=== PATIENT | male | born 2000 | race African-American/Black ===

== ENCOUNTER → 2021-07-08 11:32 | Outpatient (CLI) | payer SELFPAY | PROVIDERS: Referring Provider Orthopaedic Surgery; Visit Provider Orthopaedic Surgery | DX: S83.511A Sprain of anterior cruciate ligament of right knee, initial encounter (principal); Z53.8 Procedure and treatment not carried out for other reasons ==

== ENCOUNTER → 2021-07-17 14:07 | Outpatient (CLI) | payer OTHER, MEDICAID, SELFPAY ==
--- NOTE | 2021-07-17 14:36 | DI.MRI.S_ITS ---
PROCEDURE: MR KNEE RT WO CON INDICATIONS: Sprain of anterior cruciate ligament of right knee TECHNIQUE: Noncontrast sagittal PD fast spin echo and T2 fast spin echo with fat saturation, sagittal 3-D FLASH with fat saturation; coronal T1 spin echo and PD fast spin echo with fat saturation, and axial PD fast spin echo with fat saturation through the knee. COMPARISON: [facility] [place], CR, XR KNEE ARTHRITIC SERIES RT, 09/18/2020, 10:57. FINDINGS: Image quality: Excellent. Menisci: There is a tear of the posterior horn of the medial meniscus which extends to the inferior articular surface and the free edge. The lateral meniscus demonstrate normal morphology and internal signal. The meniscal root ligaments appear intact. Cruciate ligaments: Chronic appearing anterior cruciate ligament tear. Torn anterior cruciate ligament is retracted. The posterior cruciate ligament appears intact. Medial structures: The medial collateral ligament appears intact. The posterior oblique ligament, semimembranosus tendon insertions, oblique popliteal ligament, and meniscocapsular junction appear intact. Visualized portions of the pes anserinus tendons appear normal. No abnormal bursal fluid. Lateral structures: The lateral collateral ligament, long and short heads of the biceps femoris tendon appear intact. The popliteus tendon appears normal; the popliteofibular ligament appears intact. The posterosuperior and anteroinferior popliteomeniscal fascicles appear intact. The arcuate and fabellofibular ligaments appear intact, on either side of the lateral inferior geniculate artery. Iliotibial band appears normal. Anterior structures: The quadriceps and patellar tendons appear intact. Patellar alignment is normal. No femoral trochlear dysplasia or ventral trochlear prominence. No edema in the infrapatellar fat pad. Bones and cartilage: No bone marrow contusions or fractures. The cartilage of the lateral femorotibial compartment, as well as the patellofemoral compartment, appears normal in thickness. There is thinning and irregularity of the articular cartilage in the medial compartment with adjacent reactive bone marrow edema. Joint space: There is a small joint effusion. Small popliteal cyst noted. Normal appearing synovial plicae are incidentally noted. IMPRESSION: 1. 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 2. Tear of the posterior horn of the medial meniscus. 3. Thinning and irregularity of the articular cartilage of the medial compartment. 4. Small joint effusion. 5. Small popliteal cyst. Dictated by: Jazmín Hopkins MD, PhD on 07/17/2021 at 15:02 Approved by: Jazmín Hopkins MD, PhD on 07/17/2021 at 17:12
== END ==
PROVIDERS: Referring Provider Orthopaedic Surgery; Visit Provider Orthopaedic Surgery
DX: S83.511A Sprain of anterior cruciate ligament of right knee, initial encounter (principal); S83.241A Other tear of medial meniscus, current injury, right knee, initial encounter; M25.461 Effusion, right knee; M71.21 Synovial cyst of popliteal space [Baker], right knee
CPT/HCPCS: 73721

== ENCOUNTER → 2021-08-30 09:40 | Outpatient (CLI) | payer OTHER, MEDICAID, SELFPAY ==
[2021-08-30 12:03] LABS: COVID19 -Nasal RAPID Negative (Negative)
== END ==
PROVIDERS: Visit Provider Nurse Practitioner Family
DX: Z20.822 Contact with and (suspected) exposure to COVID-19 (principal)
CPT/HCPCS: 87635; C9803

== ENCOUNTER 2021-09-02 13:00 | Day surgery (SDC) | payer OTHER, MEDICAID, SELFPAY ==
[2021-08-21 08:50] VITALS: BMI 21.1
[2021-09-02] VITALS (8 sets, daily range): BP systolic 103–131; BP diastolic 52–89; PULSE 65–82; RESP 12–22; TEMP 36.6–36.8; O2SAT 97–100; BMI 21.1
[2021-09-02] MEDS: PREGABALIN 75 MG CAPSULE PO (13:51)
[2021-09-02] MEDS: CELECOXIB 200 MG CAPSULE PO (13:51)
[2021-09-02] MEDS: LACTATED RINGERS 1,000 ML 84 ML IV (13:51)
--- NOTE | 2021-09-02 14:10 | PM.PREOP ---
Pre-operative Note COVID-19 COVID-19 status: Negative Result date/Date tested (Pos, Neg/Pending): 08/30/21 Interval Note History & Physical reviewed/Exam performed by Physician: Yes Changes to H&P: No
--- NOTE | 2021-09-02 14:57 | SUR.PREOP ---
Block start time [1435] . Monitoring initiated and maintained throughout procedure. Oxygen and medications given per anesthesiologist instructions. Patient remained stable throughout procedure, no adverse reactions noted. Block end time [1448].
[2021-09-02] MEDS: CEFAZOLIN 2 GM/20 ML SYRINGE IV (15:00)
--- NOTE | 2021-09-02 15:25 | PM.PROC.1 ---
Procedures Date/Time Date of procedure: 09/02/21 Time of procedure: 13:40 General Procedure description: Ultrasound guided femoral nerve block for post op pain control after right ACL reconstruction by Dr. Walters. Risk and benefits of procedure discussed with patient. ASA monitoring applied to patient. O2 given via nasal cannula. 2 mg Versed and 50 mcg fentanyl given for procedural sedation. Inguinal skin site was prepped with chlorhexidine and allowed to fully dry. Sterile gloves, mask, hat and probe cover were used to maintain sterility. 2% lidocaine and 30ga needle was used to make a small skin wheal at needle insertion site. Under ultrasound guidance, a 21ga 50mm Pajunk needle was directed into the adductor canal near femoral artery at the inguinal crease. Quadricepts stimulated with 0.2mA electrical current. After negative aspiration, 20 mL 0.5% ropivacaine and 10mg dexamethasone were injected around femoral nerve. Patient tolerated procedure well.
--- NOTE | 2021-09-02 15:29 | SUR.OPER ---
Supine on padded OR bed, head on pillow, arms secured on padded arm boards at <90 degrees abduction, legs uncrossed, safety belt at torso, Right leg in control of the Surgeon. Surgeon requested no tape to Left lower leg due to positioning of bed. Legs of bed bent downwards. Padded Lateral thigh brace to right thigh/tourniquet area.
[2021-09-02] MEDS: BUPIVACAINE 0.5% (PF) VIAL 30 ML INJ (15:36)
--- NOTE | 2021-09-02 16:33 | P.OP_ITS ---
Operative Date/Time/Diagnoses Date of procedure: 09/02/21 Time of procedure: 16:34 Pre-op diagnosis: 1. ACL rupture, right knee 2. Medial meniscus tear, right knee Post-op diagnosis: same Procedure & Clinicians Procedure: 1. Arthroscopic ACL reconstruction with hamstring autograft, right knee 2. Arthroscopic partial medial meniscectomy, right knee Same procedure as scheduled: Yes Indications: The patient is a 20-year-old young man who has had an injury to his knee a number of months ago. He has continued to have symptoms of instability and pain and after discussion of the risks benefits and alternatives he has requested that we proceed with surgery. Risks discussed included but were not limited to: Failure to return to same level of sporting, failure to provide stability, failure to provide pain relief, stiffness, infection, nerve damage, deep venous thrombosis, pulmonary embolism, stroke, myocardial infarction, permanent paralysis, aspiration pneumonia and . Surgeon: Narciso Walters Information Systems Coordinator: Andrei Perez Click Yes if Unassisted: No Anesthesia Type: General, Peripheral nerve block and Local Operative Notes Findings: 1. Normal suprapatellar pouch 2. Normal patellofemoral joint 3. Medial and lateral gutters normal except for a displaced fragment of medial meniscus flipped into the medial gutter 4. Medial compartment notable for complex posterior horn, irreparable medial meniscus tear and grade 2 chondromalacia in an area approximately 10 x 15 mm in the weight-bearing surface of the medial femoral condyle. 5. Intercondylar notch notable for a complete rupture of the ACL. PCL appeared to be intact. 6. Lateral compartment notable for intact meniscus and cartilage. 7. Posterolateral compartment normal 8. Posterior medial compartment notable for complex posterior horn medial meniscus tear. Exam under anesthesia notable for full range of motion, no effusion, collateral ligaments appeared to be intact. PCL appeared to be intact. ACL had a grade 3 Telly's and a grade 3 pivot shift with temporary locking. Closure Type: primary Specimen(s): none sent Prosthetic devices, grafts, tissues, transplants, or devices: Implants used in this procedure included an Arthrex tight rope implant for the femur and an Intrafix tibial sheath and screw with a 30 mm sheath and an 8-10 X 30 mm screw. Applied: implant(s) Estimated Blood Loss (mL): 10 Blood products transfused: none Tourniquet time (min): 47 Procedure in detail: The patient was seen in the preoperative area where he identified his right knee as the operative site and this was marked with my initials. He underwent a femoral nerve block and was taken to the operating room and placed on the operating room table in the supine position. He underwent a general anesthetic. He received preoperative antibiotics. His knee was examined under anesthesia with the result given above. A realtime court reporter-out was performed. A tourniquet was placed about the proximal right thigh. The right leg was prepared from the toes to the tourniquet with ChloraPrep in the usual fashion draped through sterile drapes. A superomedial portal was created for the pump cannula in the knee expanded with arthroscopic fluid. A lateral portal was created for the arthroscope and diagnostic arthroscopy ensued with result given above. During diagnostic arthroscopy a medial portal was created for the probe and other tools. Initially the shaver was used to perform a partial medial meniscectomy. All arthroscopic equipment was removed except for the outflow cannula. The leg was elevated and exsanguinated with an Esmarch bandage the tourniquet inflated to 250 mmHg. An approximately cm and half incision was created over the pes anserinus tendons. The gracilis and semitendinosus tendons were harvested in the usual fashion with a closed ended tendon harvester and taken to the back table for preparation into a graft by my infertility medical assistant. While the graft was being prepared, I placed the arthroscope back in the knee. The ACL remnant was debrided with shaver. The arthroscope was moved to the medial portal and the Arthrex flip cutter guide was brought in through the lateral portal and used to place a flip cutter device in the center of the ACL footprint. A 9 mm diameter by 25 mm deep socket was created in the femur. A passing suture was placed into the joint and brought out through the lateral portal. The arthroscope was then positioned in the lateral portal and the tibial guide placed through the medial portal and the tibial tunnel created which was also 9 mm in diameter. This was created over guidewire in the center of the ACL footprint on the tibia. The knee was then drained of fluid, the passing suture was brought out through the tibial tunnel and used to deliver the graft into the femoral socket. After deploying the ?tight rope? I put tension on the graft to ensure that it was fixed on the femoral cortex. The tight rope device was then used to advance the graft into the tunnel. The tensioning guide was then placed on the tibial ends of the graft and the knee was placed through 20 cycles of flexion and extension with 20 lb of tension on the grafts. This was then held 15 lb of tension while a sheath and the interference screw was placed in the tibial tunnel for tibial fixation. The knee was then examined under anesthesia with findings of elimination of the Telly's to grade 0. The excess graft exiting the tibial tunnel was amputated. The sutures of the tight rope were tied to each other using a knot pusher to prevent loosening. The sutures were cut beneath the level of the skin. The graft harvest wound was closed with 3-0 Vicryl in the subcutaneous layer and then all wounds were closed with 4-0 subcuticular Monocryl. Steri-Strips were applied. The knee was injected with 20 mL 0.5% Marcaine for postoperative pain control. The tourniquet was deflated during closure for a total tourniquet time of 47 minutes. Dressings of sterile 4x4s, sterile cast padding and an Pelon wrap were applied. The patient was then transferred to the recovery room in good condition having tolerated the proce dure well. Complications: none Post-operative Condition: stable Disposition: PACU Plan for aftercare: Patient will be discharged home today. He will use crutches for the 1st 24 hours because of his femoral nerve block. He will then use crutches for com fort. He will be advanced on a standard ACL protocol. He will be following up in my office in 2 weeks. Prescriptions for oxycodone and hydroxyzine have been called in to his pharmacy for postoperative pain relief.
[2021-09-02] MEDS: OXYCODONE IR 5 MG TABLET PO (17:28)
[2021-09-02] MEDS: hydrOXYzine pamoate 25 MG CAPSULE PO (17:29)
== END 2021-09-02 17:45 | disposition home or self-care (01) ==
PROVIDERS: PCP Pediatrics; Referring Provider Pediatrics; Visit Provider Orthopaedic Surgery
PROC: (CPT 29888; principal; 2021-09-02 15:00)
DX: S83.511A Sprain of anterior cruciate ligament of right knee, initial encounter (principal); S83.241A Other tear of medial meniscus, current injury, right knee, initial encounter; X58.XXXA Exposure to other specified factors, initial encounter; M94.261 Chondromalacia, right knee
CPT/HCPCS: 29888; 29881; 64450; J0690; J1100; J2250; J2405; J2704; J3010

== ENCOUNTER → 2022-09-15 12:29 | Outpatient (CLI) | payer OTHER, MEDICAID, SELFPAY ==
[2022-09-15 13:47] LABS: COVID19 -Nasal RAPID Negative (Negative)
== END ==
PROVIDERS: PCP Pediatrics; Referring Provider Orthopaedic Surgery; Visit Provider Orthopaedic Surgery
DX: Z20.822 Contact with and (suspected) exposure to COVID-19 (principal)
CPT/HCPCS: 87635; C9803

== ENCOUNTER 2022-09-17 06:22 | Day surgery (SDC) | payer OTHER, MEDICAID, SELFPAY ==
[2022-09-16 08:49] VITALS: BMI 20.7
[2022-09-17] VITALS (7 sets, daily range): BP systolic 106–150; BP diastolic 68–105; PULSE 61–82; RESP 12–17; TEMP 35.9–36.7; O2SAT 99–100; BMI 20.7
[2022-09-17] MEDS: LACTATED RINGERS 1,000 ML 42 ML IV (07:10)
--- NOTE | 2022-09-17 07:32 | PM.PREOP ---
Pre-operative Note COVID-19 COVID-19 status: Negative Result date/Date tested (Pos, Neg/Pending): 09/15/22 Interval Note History & Physical reviewed/Exam performed by Physician: Yes Changes to H&P: No
--- NOTE | 2022-09-17 07:39 | SUR.PREOP ---
Block start time 0740] . Monitoring initiated and maintained throughout procedure. Oxygen and medications given per anesthesiologist instructions. Patient remained stable throughout procedure, no adverse reactions noted. Block end time [0747].
[2022-09-17] MEDS: CEFAZOLIN 2 GM/100 ML PREMIX 100 ML IV (08:05)
--- NOTE | 2022-09-17 08:17 | SUR.OPER ---
Supine on padded OR bed, head on pillow, right arm secured on padded arm boards at <90 degrees abduction, left arm tucked at side with draw sheet and gel pad, legs uncrossed, safety belt at thigh, tape over blanket over lower legs.
[2022-09-17] MEDS: BUPIVACAINE 0.5% (PF) VIAL 30 ML INJ (08:21)
--- NOTE | 2022-09-17 09:44 | PM.OP.1 ---
Operative Date/Time/Diagnoses Date of procedure: 09/17/22 Time of procedure: 09:44 Pre-op diagnosis: Failed ACL reconstruction, right knee Post-op diagnosis: same Procedure & Clinicians Procedure: 1. Revision right ACL reconstruction with quadriceps autograft 2. Removal of deep hardware from both femur and tibia Same procedure as scheduled: Yes Indications: The patient is a 21-year-old young man who underwent a hamstring anterior cruciate ligament reconstruction approximately 1 year ago. Initially did well but then presented with a grossly unstable knee later in the year. He has agreed to revision after MRI confirmed graft rupture. Risks discussed included but were not limited to: Failure to improve, stiffness, infection, nerve damage, deep venous thrombosis, pulmonary embolism, permanent paralysis and . Surgeon: Narciso Waltesr Accounts Payable Bookkeeper: Andrei Perez Click Yes if Unassisted: No Anesthesia Type: General, Peripheral nerve block and Local Operative Notes Findings: 1. Mild scarring in the suprapatellar pouch 2. Normal patellofemoral joint 3. Medial and lateral gutters notable for mild scarring in the lateral gutter and evidence of the prior fixation button for the femur. This was removed. 4. Medial compartment notable for evidence of prior partial medial meniscectomy but no current meniscal tear 5. Intercondylar notch notable for complete absence of graft with stenosis of the anterior notch potentially having caused the graft rupture. Femoral tunnel appeared to be appropriately positioned. Tibial tunnel appeared to be appropriately positioned. 6. Lateral compartment normal 7. Posterolateral compartment normal 8. Posteromedial compartment normal. Closure Type: primary Specimen(s): none sent Prosthetic devices, grafts, tissues, transplants, or devices: Implants used in this procedure manufactured by the [employer]. These included a ?tight rope? femoral device and a 20 mm tibial button for the tibial tight rope. Removed was the previous femoral tight rope fixation device. Applied: implant(s) Estimated Blood Loss (mL): 25 Blood products transfused: none Tourniquet time (min): 60 Procedure in detail: The patient was seen in the preoperative area where he identified the right knee as the operative site and this was marked with my initials. He was taken to the operating room and placed on the operating room table in a supine position after undergoing a femoral nerve block. He underwent a general anesthetic in the operating room. A tourniquet was placed about his proximal right thigh. His right knee was examined under anesthesia with findings of a grade 3 Telly's grade 3 pivot shift. There was mild hyperextension of the knee. A physical medicine physician-out was performed prior to prepping and draping. The right leg was then prepared from the toes to the tourniquet with ChloraPrep in the usual fashion draped through sterile drapes. The knee was entered through a superior medial portal with the pump cannula in the knee expanded with arthroscopic fluid. A lateral portal was created for the arthroscope in the knee diagnostically arthroscoped with result given above. After confirming the need for revision ACL reconstruction, all arthroscopic equipment was temporarily removed. The leg was elevated and exsanguinated with an Esmarch bandage and an approximately 6 cm incision created just above the patella overlying the quadriceps tendon. A 65 mm long by 11 mm diameter graft was harvested from the central portion of the quadriceps tendon and taken to the back table for preparation by Mr. Perez. I returned my attention to the knee after closing the defect in the quadriceps with a running 0 Vicryl suture. The arthroscope was reinserted and the scar tissue in the notch removed. It became evident that the opening of the notch was quite stenotic with poor visualization around the corner from the lateral portal and difficulty placing the femoral guide for the drilling of the tunnel. I therefore elected to expand the aperture of the tunnel using a 5.5 mm oval bur. Approximately 2-3 mm of the lateral wall anterior to the insertion of the anterior cruciate ligament was carefully excised and smoothed. The femoral tunnel was then drilled an 11 mm diameter in the center portion of the footprint of the ACL using a flip cutter Reamer. A passing suture was placed. We then reopened the tibial approach from the prior surgery and removed the tibial fixation devices including the Intrafix screw and its sheath. The arthroscope was then reinserted and a tibial guide used to place a guide pin in the tibial tunnel. This was over drilled with an 11 mm cannulated Reamer. The passing suture was then withdrawn through the tibial tunnel and used to deliver the graft through the tibial tunnel into the femoral tunnel. 20 mm of graft was set in the femoral tunnel. Traction confirmed that the femoral fixation was firmly applied to the lateral aspect of the femoral cortex. The tibial button was then placed and brought down to the aperture of the tibial tunnel and the tight rope on the tibial side tightened and tied over the button. I then further tightened the femoral side and tied those sutures using a knot pusher down the portal. The knee was checked and found to have full range of motion, the pivot shift and Telly's had been rendered to grade 0. At this point the wounds were closed using 3-0 Vicryl in a subcutaneous layer of the tibial wound and the graft harvest wound. 4-0 Monocryl was used for all wounds as a subcuticular stitch followed by Steri-Strips. The subcutaneous tissues around the femoral harvest wound were infiltrated with Marcaine for postoperative pain control. The tourniquet was deflated during closure for total tourniquet time of 60 minutes. Dressings of sterile 4x4s, sterile cast padding, Pelon wrap were applied. The patient was then transported to the recovery room in good condition having tolerated the procedure well. The services of Ortiz Chris were necessary as a skilled casino assistant manager for graft preparation, assistance with holding the holding and directing the camera while my hands were occupied elsewhere and with positioning of the knee. Without a skilled casino assistant manager this surgery would have taken considerably longer and would not have been completed as safely for the patient. Complications: none Post-operative Condition: stable Disposition: PACU Plan for aftercare: The patient will be maintained on a standard anterior cruciate ligament reconstruction protocol with crutches until his quadriceps function and pain have improved to the point he can safely bear weight.
[2022-09-17] MEDS: OXYCODONE IR 5 MG TABLET PO (10:14)
[2022-09-17] MEDS: HYDROMORPHONE 2 MG INJ IV (10:25)
== END 2022-09-17 11:10 | disposition home or self-care (01) ==
PROVIDERS: PCP Pediatrics; Referring Provider Pediatrics; Visit Provider Orthopaedic Surgery
PROC: (CPT 29888; principal; 2022-09-17 07:45)
DX: S83.511A Sprain of anterior cruciate ligament of right knee, initial encounter (principal); T85.9XXA Unspecified complication of internal prosthetic device, implant and graft, initial encounter
CPT/HCPCS: 29888; 20680; 64450; J0690; J1100; J1170; J2250; J2405; J2704; J3010